=== PATIENT | male | born 1990 | race American Indian/Alaskan Native ===

== ENCOUNTER 2016-06-09 06:50 | Emergency (ER) | payer SELFPAY ==
--- NOTE | 2016-06-09 07:59 | XRay Report ---
ROUTINE CHEST, TWO VIEWS: HISTORY: Shortness of breath, chest pain. The trachea, heart, mediastinal contour, lung love and bony thorax are unremarkable. IMPRESSION: Unremarkable chest x-ray.
[2016-06-09 08:07] LABS: Eosinophils % (Auto) 0.1 % (0.0-4.3); Hematocrit 49.8 % (35.5-45.6); Mean Corpuscular HGB Conc 32 % (32-34); Mean Corpuscular Hemoglobin 28 pg (28-32); Mean Corpuscular Volume 87 fl (84-94); Platelet Count 232 K/mm3 (140-440); Red Blood Count 5.71 M/mm3 (3.65-5.03); Red Cell Distribution Width 13.7 % (13.2-15.2); White Blood Count 3.6 K/mm3 (4.5-11.0)
[2016-06-09 08:19] LABS: Anion Gap 17 mmol/L; BUN/Creatinine Ratio 8.18; Blood Urea Nitrogen 9 mg/dL (9-20); Calcium 8.8 mg/dL (8.4-10.2); Carbon Dioxide 27 mmol/L (22-30); Chloride 95.8 mmol/L (98-107); Glucose 103 mg/dL (75-100); Potassium 4.1 mmol/L (3.6-5.0); Sodium 136 mmol/L (137-145)
[2016-06-09] MEDS ORDERED: TYLENOL PO ONE (09:45)
[2016-06-09] MEDS ORDERED: DUONEB 0.5 MG-3 MG/3 ML SOLN IH ONE (09:46)
--- NOTE | 2016-06-09 10:33 | Emergency Department Report ---
HPI - General Chief Complaint: Chest Pain Time Seen by Provider: 06/09/16 09:37 - HPI HPI: This is a 25-year-old -Turkish male who presents to the emergency department with complaint of some shortness of breath that appears to worsen when he is laying flat on the couch or on his bed, but not on the floor, that began this morning. It is associated with some generalized chest discomfort that was 9 out of 10 when it began but has since resolved. There is no radiation. He denies any nausea, vomiting, chills, sweats, diaphoresis, back pain, dysuria. Patient does have history of asthma and wonders if this could be an asthma exacerbation. His primary care doctor is a Dr. Barraza but he has not seen them regarding his symptoms. The patient was seen at [facility] yesterday for some food poisoning and says that has improved if not resolved. He denies any cough. No recent travel or sick contacts at home. ED Past Medical Hx - Medications Home Medications: Home Medications Medication Instructions Recorded Confirmed Last Taken Type ALBUTEROL Inhaler [ProAir HFA 2 puff IH QID PRN #1 inhalation 06/09/16 Unknown Rx Inhaler] ED Review of Systems ROS: Stated complaint: BREATHING PROBLEM, CP Other details as noted in HPI Comment: All other systems reviewed and negative Constitutional: denies: chills, fever Eyes: denies: eye pain, eye discharge, vision change ENT: denies: ear pain, throat pain Respiratory: shortness of breath. denies: cough Cardiovascular: chest pain. denies: palpitations Gastrointestinal: denies: abdominal pain, nausea, diarrhea Genitourinary: denies: urgency, dysuria Musculoskeletal: denies: back pain, joint swelling, arthralgia Skin: denies: rash, lesions Neurological: denies: headache, weakness, paresthesias Physical Exam - Physical Exam Vital Signs: Vital Signs 06/09/16 07:16 Temperature 100.4 F H Pulse Rate 98 H Respiratory 20 Rate Blood Pressure 155/99 O2 Sat by Pulse 98 Oximetry Physical Exam: GENERAL: The patient is well-developed well-nourished. HEENT: Normocephalic. Atraumatic. Extraocular motions are intact. Patient has moist mucous membranes. Pupils equal reactive to light bilaterally. NECK: Supple. Trachea is midline. CHEST/LUNGS: Clear to auscultation. There is no respiratory distress noted. HEART/CARDIOVASCULAR: Regular. There is no tachycardia. There is no gallop rub or murmur. ABDOMEN: Abdomen is soft, nontender. Patient has normal bowel sounds. There is no abdominal distention. SKIN: There is no rash. There is no edema. There is no diaphoresis. NEURO: The patient is awake, alert, and oriented. The patient is cooperative. The patient has no focal neurologic deficits. The patient has normal speech. MUSCULOSKELETAL: There is no tenderness or deformity. There is no limitation range of motion. There is no evidence of acute injury. ED Course Vital Signs 06/09/16 07:16 Temperature 100.4 F H Pulse Rate 98 H Respiratory 20 Rate Blood Pressure 155/99 O2 Sat by Pulse 98 Oximetry ED Medical Decision Making - Lab Data Result diagrams: 06/09/16 07:50 06/09/16 07:50 - EKG Data -: EKG Interpreted by Me EKG shows normal: sinus rhythm, axis, intervals, QRS complexes, ST-T waves Rate: normal - EKG Data When compared to previous EKG there are: previous EKG unavailable Interpretation: normal EKG - Radiology Data Radiology results: image reviewed interpreted by me: Chest x-ray did not show any acute process. Heart is normal shape and size. No effusions. No pneumothorax. No signs of pneumonia seen. - Medical Decision Making 25-year-old male presents emergency department with a one-day history of some shortness of breath. Patient mostly complains of some chest congestion and/or mucous but denies any cough. Chest x-ray is negative for pneumonia or any acute process. Patient is negative for influenza. Vital signs are stable but he does have a very low-grade fever of 100.4. Given some Tylenol and it resolved on its own. Labs are unremarkable including no signs of leukocytosis. Patient most likely has a viral syndrome. This could be exacerbating his asthma. He will be given a dose of Decadron here and an albuterol inhaler prescription and encouraged to pickle maker Mucinex. He has a primary care doctor and will be encouraged to follow-up in the next few days. He will return to the ER with any worsening of symptoms or any acute distress. EKG does not show any signs of ST elevation NM, dysrhythmia or ischemia and the patient has a negative troponin 2. - Differential Diagnosis costochondritis, asthma, pneumonia, influenza, NM Critical Care Time: No Critical care attestation.: If time is entered above; I have spent that time in minutes in the direct care of this critically ill patient, excluding procedure time. ED Disposition Clinical Impression: Viral syndrome Upper respiratory infection Qualifiers: URI type: unspecified URI Qualified Code(s): J06.9 - Acute upper respiratory infection, unspecified Disposition: DISCHARGED TO HOME OR SELFCARE Is pt being admited?: No Does the pt Need Aspirin: No Condition: Stable Instructions: Viral Syndrome (ED), Upper Respiratory Infection (ED) Additional Instructions: Please follow-up with your primary care doctor in the next few days. Return to the emergency department with any worsening of your symptoms or any acute distress. You can use Tylenol every 4 hours and Motrin every 6 hours, using weight-based dosing, as needed for fever or discomfort. Prescriptions: ALBUTEROL Inhaler [ProAir HFA Inhaler] 2 puff IH QID PRN #1 inhalation PRN Reason: Shortness Of Breath Referrals: PRIMARY CARE, [Primary Care Provider] - 3-5 Days Time of Disposition: 11:26
[2016-06-09] MEDS ORDERED: MOTRIN PO ONE (11:24)
[2016-06-09] MEDS ORDERED: DELTASONE ONE (11:30)
[2016-06-09] MEDS ORDERED: DECADRON PO ONE (12:00)
[2016-06-09 13:04] VITALS: BP 128/80
== END 2016-06-09 12:41 | disposition home or self-care (01) ==
LOC: ED 06:50
DX: J06.9 Acute upper respiratory infection, unspecified (principal); B34.9 Viral infection, unspecified
CPT/HCPCS: 36415; 71020; 80048; 84484; 85025; 87400; 93005; 93010; 94640; 99285; J8540; J7512

== ENCOUNTER 2020-10-20 00:45 | Emergency (ER) | payer SELFPAY ==
[2020-10-20] MEDS ORDERED: ONDANSETRON 4 MG/2 ML INJ IV ONE (00:51)
[2020-10-20] MEDS ORDERED: fentaNYL 100 MCG/2 ML INJ IV ONE ×3 (00:51→01:27)
[2020-10-20] MEDS ORDERED: TETANUS,DIPH,PERTUSS(ACELL) VACCINE 0.5 ML SYRINGE IM ONE (00:52)
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
[2020-10-20] MEDS ORDERED: fentaNYL 250 MCG/5 ML INJ IV ONE (01:05)
[2020-10-20 01:15] LABS: Hematocrit 40.4 % (35.5-45.6); Hemoglobin 13.9 gm/dl (11.8-15.2); Mean Corpuscular HGB Conc 34 % (32-34); Mean Corpuscular Volume 86 fl (84-94); Platelet Count 267 K/mm3 (140-440); Red Cell Distribution Width 14.4 % (13.2-15.2)
[2020-10-20 01:36] LABS: BUN/Creatinine Ratio 15; Blood Urea Nitrogen 15 mg/dL (9-20); Calcium 8.3 mg/dL (8.4-10.2); Hemolysis Index 23
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
[2020-10-20] MEDS ORDERED: HYDROmorphone 1 MG/1 ML INJ IV ONE ×2 (01:56→02:50)
[2020-10-20 02:05] LABS: INR 1.08 (0.87-1.13)
[2020-10-20 02:06] LABS: Partial Thromboplastin Time 30.9 Sec. (24.2-36.6)
[2020-10-20] MEDS ORDERED: POTASSIUM CHLORIDE ER 20 MEQ TAB PO ONE ×2 (02:20→04:45)
[2020-10-20] MEDS ORDERED: HYDROmorphone 2 MG/1 ML INJ IV ONE (04:53)
[2020-10-20 05:34] VITALS: BP 132/85
[2020-10-20 07:14] LABS: Anisocytosis 1+; Band Neutrophils # (Manual) 0.2 K/mm3; Platelet Estimate Consistent w Auto; Total Cells Counted 100
== END 2020-10-20 05:32 | disposition home or self-care (01) ==
LOC: ED 00:45
DX: S01.81XA Laceration without foreign body of other part of head, initial encounter (principal); J45.909 Unspecified asthma, uncomplicated; R79.1 Abnormal coagulation profile; Z79.899 Other long term (current) drug therapy; V89.2XXA Person injured in unspecified motor-vehicle accident, traffic, initial encounter; Y93.89 Activity, other specified; Y92.488 Other paved roadways as the place of occurrence of the external cause; Y99.8 Other external cause status
CPT/HCPCS: 12016; 36415; 70450; 70486; 72125; 80048; 85007; 85025; 85610; 85730; 86850; 86900; 86901; 90471; 90715; 96374; 96375; 96376; 99284; J1170; J2405; J3010

== ENCOUNTER 2020-10-20 09:22 | Emergency (ER) | payer SELFPAY ==
[2020-10-20 09:36] VITALS: BP 143/102
== END 2020-10-20 11:00 ==
LOC: ED 09:22
DX: R51.9 Headache, unspecified (principal); Z53.21 Procedure and treatment not carried out due to patient leaving prior to being seen by health care provider; V87.7XXA Person injured in collision between other specified motor vehicles (traffic), initial encounter; Y93.89 Activity, other specified; Y92.488 Other paved roadways as the place of occurrence of the external cause; Y99.8 Other external cause status

== ENCOUNTER 2020-11-05 13:41 | Emergency (ER) | payer MEDICAID, OTHER ==
[2020-11-05 14:22] VITALS: BP 133/87
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
== END 2020-11-05 15:44 | disposition home or self-care (01) ==
LOC: ED 13:41
DX: S01.111D Laceration without foreign body of right eyelid and periocular area, subsequent encounter (principal); Z48.02 Encounter for removal of sutures; J45.909 Unspecified asthma, uncomplicated; Z79.899 Other long term (current) drug therapy; X58.XXXD Exposure to other specified factors, subsequent encounter
CPT/HCPCS: 99282